=== PATIENT | female | born 1980 | race American Indian/Alaskan Native ===

== ENCOUNTER 2016-04-08 13:21 | Outpatient (CLI) | payer OTHER, MEDICAID ==
[2016-04-08] MEDS ORDERED: LACTATED RINGERS 500 ML IV ONE (13:37)
[2016-04-08 16:19] VITALS: BP 131/69
[2016-04-08] MEDS ORDERED: LACTATED RINGERS 1,000 ML ONE (16:39)
--- NOTE | 2016-04-09 09:05 | Ultrasound Report ---
Limited OB ultrasound: There is a single living intrauterine gestation in cephalic position with a heart rate of 135 beats per minute. There is a grade 0 anterior placenta. No abnormality noted. The KIMBERLY is 20.2 cm which is within the normal range. The closed cervical length is 3.2 cm which is within normal limits. The gestational age is approximately 27 weeks. No other information supplied. BIOPHYSICAL PROFILE: 2 - breathing movements 2 - movements 2 - posture and tone 2 - Qualitative amniotic fluid volume 8 - TOTAL SCORE OF POSSIBLE 8 Heart Rate (bpm) 131
== END 2016-04-08 19:00 | disposition home or self-care (01) ==
LOC: TRG 13:21
PROVIDERS: ATTEND Obstetrics & Gynecology
DX: O77.9 Labor and delivery complicated by fetal stress, unspecified (principal); O47.02 False labor before 37 completed weeks of gestation, second trimester; Z3A.27 27 weeks gestation of pregnancy
CPT/HCPCS: 59025; 76815; 76819; J7120

== ENCOUNTER 2016-05-28 23:08 | Outpatient (CLI) | payer OTHER, MEDICAID ==
[2016-05-28] MEDS ORDERED: LACTATED RINGERS 500 ML IV ONE (23:40)
[2016-05-28] MEDS ORDERED: LACTATED RINGERS 1,000 ML ONE (23:41)
[2016-05-28 23:49] VITALS: BP 121/56
[2016-05-29 00:12] LABS: Bacteria,Urine 2+ /HPF (Negative); Bilirubin,Urine NEG (Negative); Blood,Urine NEG (Negative); Ketones,Urine NEG (Negative); Leukocyte Esterase,Urine MOD (Negative); Mucus,Urine FEW /HPF; Nitrite,Urine NEG (Negative); Protein,Urine <15 mg/dL mg/dL (Negative); Urobilinogen,Urine < 2.0 mg/dL (<2.0)
== END 2016-05-29 00:29 | disposition home or self-care (01) ==
LOC: TRG 23:08
PROVIDERS: ATTEND Obstetrics & Gynecology
DX: O26.893 Other specified pregnancy related conditions, third trimester (principal); R10.9 Unspecified abdominal pain; Z3A.34 34 weeks gestation of pregnancy
CPT/HCPCS: 81001; 96360; J7120

== ENCOUNTER 2016-06-23 00:02 | Outpatient (CLI) | payer OTHER, MEDICAID ==
[2016-06-23 00:27] VITALS: BP 123/70
== END 2016-06-23 00:51 | disposition home or self-care (01) ==
LOC: TRG 00:02
PROVIDERS: ATTEND Obstetrics & Gynecology
DX: O26.893 Other specified pregnancy related conditions, third trimester (principal); O62.0 Primary inadequate contractions; Z3A.37 37 weeks gestation of pregnancy

== ENCOUNTER 2016-06-25 16:43 | Outpatient (CLI) | payer OTHER, MEDICAID ==
[2016-06-25 17:22] VITALS: BP 120/63
[2016-06-25] MEDS ORDERED: VISTARIL PO PRN (20:35)
[2016-06-25 21:01] LABS: Bacteria,Urine 4+ /HPF (Negative); Bilirubin,Urine NEG (Negative); Blood,Urine LG (Negative); Ketones,Urine NEG (Negative); Leukocyte Esterase,Urine LG (Negative); Mucus,Urine FEW /HPF; Nitrite,Urine NEG (Negative); Urobilinogen,Urine < 2.0 mg/dL (<2.0)
[2016-06-25 21:02] LABS: WBC,Urine > 182.0 /HPF (0.0-6.0)
== END 2016-06-25 20:46 | disposition home or self-care (01) ==
LOC: TRG 16:43
PROVIDERS: ATTEND Obstetrics & Gynecology
DX: O47.1 False labor at or after 37 completed weeks of gestation (principal); Z3A.38 38 weeks gestation of pregnancy
CPT/HCPCS: 81001; Q0177

== ENCOUNTER 2016-06-29 06:10 | Inpatient (IN) | payer OTHER, MEDICAID ==
[2016-06-29] MEDS ORDERED: LACTATED RINGERS 1,000 ML ONE ×2 (06:11→06:17)
[2016-06-29] MEDS ORDERED: SUBLIMAZE ONE (06:29)
[2016-06-29] MEDS ORDERED: ePHEDrine SULFATE ONE (06:33)
[2016-06-29] MEDS ORDERED: SUBLIMAZE IV ONE (06:38)
[2016-06-29 06:42] LABS: Hematocrit 35.1 % (30.3-42.9); Hemoglobin 11.6 gm/dl (10.1-14.3); Mean Corpuscular HGB Conc 33 % (30-34); Mean Corpuscular Hemoglobin 30 pg (28-32); Mean Corpuscular Volume 91 fl (79-97); Platelet Count 236 K/mm3 (140-440); Red Blood Count 3.84 M/mm3 (3.65-5.03); Red Cell Distribution Width 14.4 % (13.2-15.2); White Blood Count 12.7 K/mm3 (4.5-11.0)
--- NOTE | 2016-06-29 07:06 | Anesthesia Consultation ---
Anesthesia Consult and Med Hx Date of service: 06/29/16 - Airway Anesthetic Teeth Evaluation: Good ROM Head & Neck: Adequate Mental/Hyoid Distance: Adequate Mallampati Class: Class II Intubation Access Assessment: Good - Pulmonary Exam CTA: Yes - Cardiac Exam Cardiac Exam: No Murmur - Pre-Operative Health Status ASA Pre-Surgery Classification: ASA2 Proposed Anesthetic Plan: Epidural - Pulmonary Hx Asthma: No - Cardiovascular System Hx Hypertension: No (oper pt) - Central Nervous System Hx Seizures: No Hx Psychiatric Problems: Yes (Depression) - Endocrine Hx Renal Disease: No Hx Hypothyroidism: No Hx Hyperthyroidism: No - Hematic Hx Anemia: No Hx Sickle Cell Disease: No - Other Systems Hx Alcohol Use: No
--- NOTE | 2016-06-29 07:24 | Progress Note ---
Subjective - Subjective Date of service: 06/29/16 Principal diagnosis: Active labor Patient reports: other (comfortable s/p epidural) Objective - Vital Signs Vital Signs: Vital Signs - 12hr 06/29/16 06/29/16 06/29/16 06:14 06:15 06:20 Pulse Rate 110 H 90 90 Blood Pressure 144/86 O2 Sat by Pulse 99 99 Oximetry 06/29/16 06/29/16 06/29/16 06:35 06:40 06:45 Pulse Rate 108 H 88 99 H Blood Pressure O2 Sat by Pulse 99 99 98 Oximetry 06/29/16 06/29/16 06/29/16 06:50 06:55 07:00 Pulse Rate 94 H 94 H 91 H Blood Pressure O2 Sat by Pulse 98 98 99 Oximetry 06/29/16 06/29/16 06/29/16 07:03 07:05 07:07 Pulse Rate 84 82 79 Blood Pressure 126/68 130/61 119/55 O2 Sat by Pulse 99 Oximetry 06/29/16 06/29/16 06/29/16 07:09 07:10 07:11 Pulse Rate 83 91 H 96 H Blood Pressure 121/58 124/60 O2 Sat by Pulse 99 Oximetry 06/29/16 06/29/16 06/29/16 07:13 07:15 07:17 Pulse Rate 85 80 85 Blood Pressure 132/59 138/65 136/63 O2 Sat by Pulse 99 Oximetry 06/29/16 06/29/16 07:19 07:20 Pulse Rate 85 86 Blood Pressure 140/65 O2 Sat by Pulse 99 Oximetry - Labs Labs: Abnormal Labs 06/29/16 06:35 WBC 12.7 H Laboratory Results - last 24 hr 06/29/16 06:35 WBC 12.7 H RBC 3.84 Hgb 11.6 Hct 35.1 MCV 91 MCH 30 MCHC 33 RDW 14.4 Plt Count 236
[2016-06-29] MEDS ORDERED: STADOL ONE (07:55)
[2016-06-29] MEDS ORDERED: LACTATED RINGERS 1,000 ML IV SCH (08:00)
[2016-06-29] MEDS ORDERED: BRETHINE SUB-Q PRN (08:00)
[2016-06-29] MEDS ORDERED: ePHEDrine SULFATE IV PRN (08:00)
[2016-06-29] MEDS ORDERED: PITOCin/NS 30 UNIT/500ML 30 UNITS/500 ML BAG IV SCH (08:00)
[2016-06-29] MEDS ORDERED: XYLOCAINE 2% INFILTRATI ONE (08:00)
[2016-06-29] MEDS ORDERED: MINERAL OIL PO PRN (08:00)
[2016-06-29] MEDS ORDERED: PITOCin/NS 20 UNIT/1000ML DRIP 20 UNITS/1,000 ML BAG IV SCH (08:00)
--- NOTE | 2016-06-29 08:58 | Procedure Note ---
OB Delivery Note - Delivery Date of Delivery: 06/29/16 ( Male) Communications Intern: ANYI METCALF Estimated blood loss: 300cc - Vaginal Delivery presentation: vertex Delivery position: OA Intrapartum events: none Delivery induction: none Delivery augmentation: rupture of membranes, pitocin Delivery monitor: external FHT, external uterine Route of delivery: Delivery placenta: spontaneous Delivery cord: 3 umbilical vessels Episiotomy: none Delivery laceration: none Anesthesia: epidural Delivery comments: male del over intact charlie, placed skin to skin on mother's abd. 3 vessel cord clamped and cut. Placenta del intact and complete. pit to IVF. no laceration to repair. 's weight 8#2, apgars 8/9, EBL 300. mother and baby remain LDR stable. - A at 1 minute: 8 at 5 minutes: 9 Gender: Male (8#2)
[2016-06-29] MEDS ORDERED: PHENERGAN PO PRN (11:30)
[2016-06-29] MEDS ORDERED: ZOFRAN IV PRN (11:30)
[2016-06-29] MEDS ORDERED: TUCKS PAD TP PRN (11:30)
[2016-06-29] MEDS ORDERED: SODIUM CHLORIDE FLUSH SYRINGE 10 ML IV PRN (11:30)
[2016-06-29] MEDS ORDERED: LANSINOH TP PRN (11:30)
[2016-06-29] MEDS ORDERED: DERMOPLAST TP PRN (11:30)
[2016-06-29] MEDS ORDERED: BENADRYL PO PRN (11:30)
[2016-06-29] MEDS ORDERED: TYLENOL PO PRN (11:30)
[2016-06-29] MEDS: NORCO 5/325 PO PRN ×2 (11:32→18:54)
[2016-06-29] MEDS: MOTRIN PO SCH ×2 (11:32→18:53)
[2016-06-29] MEDS: PRENATAL VITAMIN PO SCH (11:32)
[2016-06-29] MEDS ORDERED: ZOLOFT PO SCH (12:00)
[2016-06-29] MEDS ORDERED: LOVENOX SUB-Q SCH (13:00)
[2016-06-29] MEDS ORDERED: DULCOLAX PR PRN (22:00)
[2016-06-29] MEDS ORDERED: MILK OF MAGNESIA PO PRN (22:00)
[2016-06-29] MEDS: LOVENOX SUB-Q SCH (22:01)
[2016-06-29] MEDS: COLACE PO SCH (22:02)
[2016-06-29] MEDS: ZOLOFT PO SCH (22:02)
[2016-06-29 22:10] LABS: Hematocrit 30.3 % (30.3-42.9)
[2016-06-30] MEDS: MOTRIN PO SCH ×5 (00:15→23:40)
[2016-06-30] MEDS: NORCO 5/325 PO PRN ×2 (02:31→10:38)
[2016-06-30] MEDS ORDERED: BOOSTRIX IM ONE (06:00)
[2016-06-30] MEDS: COLACE PO SCH ×2 (10:38→23:41)
[2016-06-30] MEDS: PRENATAL VITAMIN PO SCH (10:38)
--- NOTE | 2016-06-30 11:45 | Progress Note ---
Assessment and Plan - Patient Problems (1) Depression Current Visit: Yes Status: Acute Qualifiers: Depression Type: D Major depression recurrence: M Active/Remission status : in remission of unspecified degree Major depression episode severity: M Psychotic features: P Trimester: T Plan to address problem: -pt doing well on zoloft -will con't zoloft pp (2) Hx of deep venous thrombosis Current Visit: Yes Status: Acute Plan to address problem: -cont lovanoxx for 6 wks pp as pt has done with each previously delivery following the event -pt expressed understanding of need to con't medications (3) (normal spontaneous vaginal delivery) Current Visit: Yes Status: Acute Plan to address problem: -routine pp care -d/c home in the am Subjective - Subjective Date of service: 06/30/16 Principal diagnosis: PPD #1 Interval history: Pt doing well. Pain is well controlled. Denies any thoughts of depression or of hurting herself or the baby or anyone else. She says she "feels good." Pt does desire d/c home tomorrow. Patient reports: appetite normal, voiding normally, pain well controlled, no dizzy ambulation [place]: doing well Objective - Vital Signs Latest vital signs: Vital Signs Temp Pulse Resp BP 06/30/16 08:32 98.3 F 84 20 124/70 06/30/16 01:15 98.2 F 82 18 136/66 06/29/16 21:00 98.7 F 70 20 134/72 06/29/16 18:54 18 06/29/16 18:53 18 06/29/16 16:41 98.7 F 76 18 128/70 Intake and Output 06/29/16 06/30/16 06/30/16 22:59 06:59 14:59 Intake Total 240 360 120 Balance 240 360 120 Intake: Oral 240 120 Intake, Free Water 360 Other: Total, Intake Amount 240 120 # Voids Void 2 1 - Exam Lungs: Present: Normal air movement Abdomen: Present: normal appearance, soft. Absent: distention, tenderness, guarding Uterus: Present: normal, firm, fundal height below umbilicus. Absent: tenderness Extremities: Present: normal. Absent: tenderness, edema - Labs Labs: Abnormal lab results 06/29/16 Range/Units 21:20 Hgb 10.0 L (10.1-14.3) gm/dl
[2016-06-30] MEDS ORDERED: FLUARIX QUAD 2016-2017(36 MOS+) IM ONE (12:00)
--- NOTE | 2016-06-30 13:03 | Progress Note ---
Subjective Date of service: 06/30/16 Principal diagnosis: PPD #1 Interval history: No anesthetic related complaints. Epidural has been removed. Objective - Constitutional Vitals: Vital Signs - 12hr 06/30/16 06/30/16 01:15 08:32 Temperature 98.2 F 98.3 F Pulse Rate [ 82 84 Left Radial] Respiratory 18 20 Rate Blood Pressure 136/66 124/70 [Left Arm] - Labs CBC & Chem 7: 06/29/16 21:20 Labs: Abnormal lab results 06/29/16 Range/Units 21:20 Hgb 10.0 L (10.1-14.3) gm/dl
[2016-06-30] MEDS ORDERED: CLARITIN PO PRN (17:13)
[2016-06-30] MEDS: LOVENOX SUB-Q SCH (23:40)
[2016-07-01] MEDS: ZOLOFT PO SCH (02:14)
[2016-07-01] MEDS: COLACE PO SCH ×2 (02:15→11:33)
[2016-07-01] MEDS: MOTRIN PO SCH (05:53)
--- NOTE | 2016-07-01 10:40 | Discharge Summary ---
Providers - Providers Date of Admission: 06/29/16 06:19 Date of discharge: 07/01/16 Attending physician: SENAIT CRONIN 06/29/16 11:01 Consult to [employer] [CONS] Routine Reason For Exam: assistance with , SNS Primary care physician: SENAIT CRONIN Hospitalization Reason for admission: active labor Delivery: Procedure details: see delivery note Episiotomy: none Laceration: none Other procedures: none complications: none Discharge diagnosis: IUP at term delivered baby: male Hospital course: s/p that was not complicated. PP course not complicated. D/c home today. Condition at discharge: Good Disposition: DISCHARGED TO HOME OR SELFCARE - Discharge Diagnoses (1) Depression Status: Acute Qualifiers: Depression Type: D Major depression recurrence: M Active/Remission status : in remission of unspecified degree Major depression episode severity: M Psychotic features: P Trimester: T (2) Hx of deep venous thrombosis Status: Acute (3) (normal spontaneous vaginal delivery) Status: Acute Plan - Discharge Medications Prescriptions: Enoxaparin [Lovenox] 40 mg SQ QHS #30 syringe Ibuprofen [Motrin 800 MG tab] 800 mg PO Q8HR PRN #30 tablet PRN Reason: Pain Lidocain2.5%/Prilocai2.5% [Emla] 5 gm TP ONCE PRN #1 tube PRN Reason: Pain Sertraline [Zoloft] 50 mg PO QDAY #30 tablet - Provider Discharge Summary Activity: routine, no sex for 6 weeks, no heavy lifting 4 weeks, no strenuous exercise Diet: routine Instructions: routine Additional instructions: [] Smoking cessation referral if applicable(refer to patient education folder for contact #) [] Refer to [facility] Book[facility] Call your doctor immediately for: * Fever > 100.5 * Heavy vaginal bleeding ( >1 pad per hour) * Severe persistent headache * Shortness of breath * Reddened, hot, painful area to leg or breast * Drainage or odor from incision. * Keep incision clean and dry at all times and follow doctor's instructions regarding bathing/showering - Follow up plan Follow up: SENAIT CRONIN MD [Primary Care Provider] - 7 Days Forms: [facility] Discharge Summary
[2016-07-01] MEDS: PRENATAL VITAMIN PO SCH (11:33)
[2016-07-01 12:05] VITALS: BP 126/60
== END 2016-07-01 13:26 | disposition home or self-care (01) | DRG 775 ==
LOC: TRG 06:10 → LD 06:19 → OB 10:36
PROVIDERS: ADMIT Obstetrics & Gynecology; ATTEND Obstetrics & Gynecology
PROC: 10E0XZZ Delivery of Products of Conception, External Approach (ICD-10-PCS; principal; 2016-06-29)
PROC: 3E0S3CZ (ICD-10-PCS; 2016-06-29)
PROC: 00HU33Z Insertion of Infusion Device into Spinal Canal, Percutaneous Approach (ICD-10-PCS; 2016-06-29)
DX: O99.344 Other mental disorders complicating childbirth (principal); F32.9 Major depressive disorder, single episode, unspecified; Z3A.38 38 weeks gestation of pregnancy; Z37.0 Single live birth; Z86.718 Personal history of other venous thrombosis and embolism
CPT/HCPCS: 36415; 85014; 85018; 85027; 86592; 86850; 86900; 86901; 90471; 90686; 90715; A6250; J0595; J1650; J2590; J3010; J7120